=== PATIENT | male | born 1995 | race Hispanic/Latino ===

== ENCOUNTER 2021-08-18 01:17 | Emergency (ER) | payer OTHER ==
[~2021-08-18] VITALS: Ht 167.6 cm; Wt 84.5 kg
[2021-08-18] MEDS ORDERED: MUCI120T PO (01:29)
[2021-08-18] MEDS ORDERED: ACET32TAB PO (01:29)
[2021-08-18] MEDS ORDERED: COLDLIQ8 PO (01:29)
[2021-08-18] MEDS ORDERED: PANTOPRAZOLE 40MG VIAL (C9113 PER 1) IV ONE (08:35)
[2021-08-18] MEDS ORDERED: ACETAMINOPHEN 325 MG TAB PO ONE (08:35)
[2021-08-18] MEDS ORDERED: NS 1,000 ML IV ONE (08:35)
[2021-08-18] MEDS ORDERED: ONDANSETRON 4MG/2ML VIAL IV ONE (08:35)
--- NOTE | 2021-08-18 08:58 | REP ---
INDICATION: fever, cough COMPARISON: None. TECHNIQUE: Portable AP view of the chest FINDINGS: The mediastinum and cardiac silhouette are within normal limits for portable technique. The lung frankel are clear without acute consolidation, effusion, or pneumothorax. Skeletal structures are intact. IMPRESSION: No acute cardiopulmonary process appreciated. <Electronically signed by Palmer Carrion > 08/18/21 [id number]
[2021-08-18 09:22] LABS: BASO # 0.1 10^3/uL (0.0-0.2); BASO % 0.4 % (0.0-1.0); EOS # 0.2 10^3/uL (0.0-0.5); EOS % 1.5 % (0.0-3.0); HEMATOCRIT 42.9 % (42.0-52.0); HEMOGLOBIN 14.6 g/dl (13.5-17.5); LYMPH # 2.5 10^3/uL (1.5-5.0); LYMPH % 18.4 % (24.0-44.0); MEAN CORPUSCULAR VOLUME 88.1 fl (80.0-96.0); MONO # 1.5 10^3/uL (0.0-0.8); MONO % 11.4 % (2.0-8.0); PLATELET COUNT, AUTOMATED 331 10^3/uL (150-450); RED BLOOD COUNT 4.87 10^6/uL (4.30-6.10); WHITE BLOOD COUNT 13.3 10^3/uL (4.0-10.0)
[2021-08-18 09:29] LABS: RSV AMPLIFICATION NEGATIVE (NEGATIVE)
[2021-08-18 09:49] LABS: ALBUMIN 3.7 GM/DL (3.2-5.2); ALT/SGPT 120 U/L (12-78); BILIRUBIN,DIRECT 0.2 MG/DL (0.0-0.2); BILIRUBIN,TOTAL 0.6 MG/DL (0.2-1.0); BLOOD UREA NITROGEN 9 MG/DL (7-18); CARBON DIOXIDE LEVEL 28 MEQ/L (21-32); CHLORIDE LEVEL 106 MEQ/L (98-107); GLOMERULAR FILTRATION RATE > 60.0 (>60); GLUCOSE, FASTING 113 MG/DL (70-100); POTASSIUM SERUM 4.3 MEQ/L (3.5-5.1); SODIUM LEVEL 140 MEQ/L (136-145); TOTAL PROTEIN 7.7 GM/DL (6.4-8.2)
[2021-08-18 09:52] LABS: MONO SCRN NEGATIVE (NEGATIVE)
[2021-08-18] MEDS ORDERED: BENZ200C70 PO (10:22)
[2021-08-18] MEDS ORDERED: ONDA4TAB6 PO (10:22)
[2021-08-18] MEDS ORDERED: AUGM875T28 PO (10:22)
[2021-08-18 10:37] VITALS: BP 130/68
== END 2021-08-18 10:40 | disposition home or self-care (01) ==
LOC: M ED 01:17
DX: U07.1 COVID-19 (principal); J01.90 Acute sinusitis, unspecified
CPT/HCPCS: 71045; 80048; 80076; 85025; 86308; 87631; 96361; 96374; 96375; 99284; C9113; J2405